=== PATIENT | female | born 1995 | race Caucasian/White ===

== ENCOUNTER 2016-05-21 20:53 | Emergency (ER) | payer MEDICAID ==
[~2016-05-21] VITALS: Ht 162.6 cm; Wt 65.8 kg
[2016-05-21 20:55] VITALS: BP 142/86; PULSE 90; RESP 20; TEMP 97.1; O2SAT 97
--- NOTE | 2016-05-21 21:20 | NUR ---
João reid in [facility] - 05/21/16 at 2222 by [email or web address] at bedside examining pt
[2016-05-21 21:32] LABS: BILIRUBIN,URINE NEGATIVE (NEGATIVE); BLOOD, URINE 2+ (NEGATIVE); CLARITY/URINE CLOUDY (CLEAR); COLOR,URINE YELLOW (YELLOW); GLUCOSE,URINE NEGATIVE (NEGATIVE); KETONES,URINE NEGATIVE (NEGATIVE); LEUKOCYTE ESTERASE ,URINE NEGATIVE (NEGATIVE); NITRITE, URINE NEGATIVE (NEGATIVE); PH,URINE 8.5 (5.0-8.0); PROTEIN URINE 1+ (NEGATIVE)
[2016-05-21 21:43] LABS: BACTERIA,URINE RARE /HPF (None Seen); URINE AMORPHOUS PHOSPHATES 3+ /HPF (None Seen); WBC,URINE 0-3 /HPF (0-3)
--- NOTE | 2016-05-21 22:05 | NUR ---
Patient to ER bed 8 to gown for evaluation. Side rails up. Report given to MAIDA COOK.
--- NOTE | 2016-05-21 22:07 | NUR ---
Pt presents to ED with c/o flank and suprapubic pain 08/19. Pt stated what she was treated for UTI, on antibiotic 1 week ago, symptoms did not resolve. A&Ox4, denies SOB or chestpain, denies N/V/D. Skin intact. Will continue to monitor
--- NOTE | 2016-05-21 22:10 | NUR ---
at bedside examining pt
[2016-05-21 22:58] VITALS: BP 137/81; PULSE 88; RESP 18; TEMP 97.1
--- NOTE | 2016-05-21 22:58 | NUR ---
Patient given written and verbal discharge instructions and verbalizes understanding. ER MD Alva discussed with patient the results and treatment provided. Patient in stable condition. ID arm band removed. Rx of bactrim, tylenol with codeine, and motrin given. Patient educated on pain management and to follow up with PMD. Pain Scale 0/10 Opportunity for questions provided and answered.
[2016-05-21] MEDS ORDERED: SULFAMETHOXAZOLE/TRIMETHOPR DS 1 TABLET PO ONE (23:00)
[2016-05-21] MEDS ORDERED: HYDROcodone/ACETAMIN 5-325 MG TAB (NORCO/ VICODIN) PO ONE (23:00)
[2016-05-22 01:09] VITALS: O2SAT 97
== END 2016-05-21 22:58 | disposition home or self-care (01) ==
LOC: SED 20:53
DX: N39.0 Urinary tract infection, site not specified (principal)
CPT/HCPCS: 81000-TC; 87086; 99284